=== PATIENT | female | born 1960 | race Caucasian/White ===

== ENCOUNTER 2023-02-19 07:04 | Day surgery (SDC) | payer MEDICAID ==
[~2023-02-19] VITALS: Ht 152.4 cm; Wt 83.9 kg
[2023-02-19] MEDS ORDERED: MEPERIDINE 50 MG/ML VIAL ONE (08:07)
[2023-02-19] MEDS ORDERED: SIMETHICONE 40 MG/0.6 ML ML ONE (08:07)
[2023-02-19] MEDS ORDERED: MIDAZOLAM HCL 5 MG/5 ML VIAL ONE (08:07)
[2023-02-19 14:48] VITALS: BP_SYST 126
== END 2023-02-19 10:40 | disposition home or self-care (01) ==
LOC: SDS 07:04
PROVIDERS: ATTEND Internal Medicine Gastroenterology
DX: Z12.11 Encounter for screening for malignant neoplasm of colon (principal); K57.30 Diverticulosis of large intestine without perforation or abscess without bleeding; K64.8 Other hemorrhoids; I10 Essential (primary) hypertension; E11.9 Type 2 diabetes mellitus without complications; E78.5 Hyperlipidemia, unspecified
CPT/HCPCS: 45378; 82962; 99152; G0378; J2250; J2175